=== PATIENT | male | born 1990 | race Caucasian/White ===

== ENCOUNTER 2023-05-07 14:13 | Emergency (ER) | payer MEDICAID, OTHER ==
[~2023-05-07] VITALS: Ht 167.6 cm; Wt 140.0 kg
[2023-05-07 14:17] VITALS: TEMP 98.2; O2SAT 98
[2023-05-07 14:54] LABS: CLARITY URINE CLEAR (CLEAR); COLOR URINE YELLOW (YELLOW); KETONES URINE NEGATIVE (NEGATIVE); LEUKOCYTE ESTERASE URINE NEGATIVE (NEGATIVE); NITRITE URINE NEGATIVE (NEGATIVE); OCCULT BLOOD URINE NEGATIVE (NEGATIVE); PH URINE 5.5 (4.5-8.0); PROTEIN URINE NEGATIVE (NEGATIVE); SPECIFIC GRAVITY URINE 1.017 (1.005-1.030); UROBILINOGEN URINE 0.2 E.U./dL (0.2-1.0)
[2023-05-07 15:16] LABS: BASOPHILS % 1.3 % (0.0-2.0); EOSINOPHILS % 7.9 % (0.0-5.0); HEMATOCRIT. 44.5 % (42.0-52.0); HEMOGLOBIN. 15.2 g/dL (14.0-18.0); LYMPHOCYTES % 28.6 % (20.0-50.0); MEAN CORPUSCULAR HEMOGLOBIN 28.2 pg (28.0-32.0); MEAN CORPUSCULAR VOLUME 82.6 fL (80.0-94.0); MEAN PLATELET VOLUME 7.3 fl (7.4-10.4); MONOCYTES % 11.5 % (2.0-8.0); NEUTROPHILS % 50.7 % (40.0-76.0); PLATELET 294 x1000/uL (130-400); RED BLOOD CELL COUNT 5.39 mill/uL (4.7-6.1); RED CELL DISTRIBUTION WIDTH 14.3 % (11.6-14.6)
[2023-05-07 15:19] LABS: CHLORIDE 106 mEq/L (98-107)
[2023-05-07 16:36] VITALS: BP 158/77; PULSE 101; RESP 20
[2023-05-07] MEDS ORDERED: KETOROLAC 60MG/2ML VIAL IM STA (16:36)
[2023-05-07] MEDS ORDERED: IBUP-2029 MT (17:31)
== END 2023-05-07 17:56 | disposition home or self-care (01) ==
LOC: ER 14:13
DX: R10.11 Right upper quadrant pain (principal); J45.909 Unspecified asthma, uncomplicated
CPT/HCPCS: 99284; 71045; 80053; 81003; 83690; 85025; 36415; 74018; 96372; J1885

== ENCOUNTER 2023-06-15 13:36 | Emergency (ER) | payer MEDICAID, OTHER ==
[~2023-06-15] VITALS: Ht 167.6 cm; Wt 141.0 kg
[~2023-06-15 13:36] MED LIST: IBUP-2029 MT
[2023-06-15 13:50] VITALS: BP 147/81; PULSE 99; RESP 16; TEMP 98.6; O2SAT 96
[2023-06-15] MEDS ORDERED: IBUPROFEN 600MG TABLET PO ONE (14:15)
== END 2023-06-15 15:03 | disposition home or self-care (01) ==
LOC: ER 13:54
DX: J40 Bronchitis, not specified as acute or chronic (principal); Z98.890 Other specified postprocedural states; Z20.822 Contact with and (suspected) exposure to COVID-19
CPT/HCPCS: 99284; 71046; 87426; 87804 ×2; C9803